=== PATIENT | female | born 1960 | race Caucasian/White ===

== ENCOUNTER 2023-09-13 13:56 | Emergency (ER) | payer OTHER, SELFPAY ==
[2023-09-13 14:04] VITALS: BP 140/68
--- NOTE | 2023-09-13 16:15 | ED.SKININJ ---
HPI-Injury
<Jimmy Molina DO - Last Filed: 09/13/23 16:17>
General
Chief Complaint: Bite
Time Seen by Provider: 09/13/23 15:22
Travel History
Have you had any contact with someone who has COVID-19?: No
Do you have any symptoms of coronavirus? Fever > 100 degrees, chills, cough, shortness of breath, sore throat, loss of taste or smell, muscle aches, or headache?: No
<Mendel Marquis PA-C - Last Filed: 09/13/23 18:57>
General
Source: patient
History of Present Illness-Injury
Initial Injury comments:
63-year-old female presenting emergency department for evaluation after she was accidentally bit by her daughter's dog approximately 30 minutes prior to arrival causing her to sustain a deep 1-1/2 cm laceration to the right middle finger with
significant pain.. Patient states dog's vaccinations are up-to-date. Patient notes that her tetanus vaccine is up-to-date. She is right-hand dominant. She does note that she has some pain and swelling to the right ring finger in addition to the
after mentioned laceration to the right middle finger.
<Mendel Marquis PA-C - Last Filed: 09/13/23 18:57>
Past History
ED Past Medical History: Hypercholesterolemia, Valvular disease and Other ([place])
ED Past Surgical History: , Gynecological, Tonsilectomy and Other (Gastric bypass)
Social History
Tobacco: Non-smoker
Alcohol: None
Drug: None
Personal: Single
Living: alone
<REJI Eisenberg Last Filed: 09/13/23 18:57>
Review of Systems
All Other Systems: ROS reviewed and negative except as documented in HPI and ROS
<Mendel Marquis PA-C - Last Filed: 09/13/23 18:57>
Physical Exam
Physical Exam:
GENERAL: Alert , in no apparent distress
EYE: conjunctiva clear
Head: Normocephalic atraumatic
NECK: Supple,
ENT: mmm.
LUNGS: no acute respiratory distress
NEUROLOGICAL: Alert and oriented
SKIN: Warm and dry, s deep 1-1/2 cm laceration to the right index finger at the level of the middle phalanx with active bleeding but no pulsatile areas seen.
MUSCULOSKELETAL: Right hand: Patient having difficulty flexing at the PIP and DIP. She does have very slight movement at the PIP and DIP with resisted flexion. Sensation is equal and intact to light touch throughout entirety of the right hand. No
difficulty with range of motion of the wrist or other large joints to the right upper extremity. Cap refills less than 2 seconds.
PSYCH: Normal and appropriate interaction.
<Mendel Marquis PA-C - Last Filed: 09/13/23 18:57>
Heart Failure Risk
Heart Failure Risk Score: Not Applicable
Heart Score for Chest Pain Patients
STEMI patient?: Not applicable
Withdrawal Assessment of Alcohol
Withdrawal Assessment Completed?: Not applicable
Course
<Jimmy Molina DO - Last Filed: 09/13/23 16:17>
Orders/Labs/Results
Orders:
Orders
09/13/23 14:13
CR Finger(s)/thumb Min 2 Vw Rt Urgent
Comment:
Reason For Exam: injury
Indicate Which Finger:: Middle Finger
09/13/23 16:13
Oxycodone/Acetaminophen [Percocet 5/325] 1 tablet PO NOW STA
09/13/23 16:39
Ampicillin/Sulbactam 3 G [Unasyn] 3 gm 0.9% Sodium Chloride 100 ml [Nss] 100 ml IV NOW
09/13/23 17:05
Ampicillin/Sulbactam 3 G [Unasyn] 3 gm 0.9% Sodium Chloride 100 ml [Nss] 100 ml IV NOW
Vital Signs
Initial and Last Documented VS:
Initial Vital Signs
Temp Pulse Resp BP Pulse Ox
98.0 F 57 16 140/68 97
09/13/23 14:04 09/13/23 14:04 09/13/23 14:04 09/13/23 14:04 09/13/23 14:04
Last Documented Vital Signs
Temp Pulse Resp BP Pulse Ox
98.0 F 57 16 140/68 97
09/13/23 14:04 09/13/23 14:04 09/13/23 14:04 09/13/23 18:22 09/13/23 14:04
<Mendel Marquis PA-C - Last Filed: 09/13/23 18:57>
Orders/Labs/Results
Orders:
Orders
09/13/23 14:13
CR Finger(s)/thumb Min 2 Vw Rt Urgent
Comment:
Reason For Exam: injury
Indicate Which Finger:: Middle Finger
09/13/23 16:13
Oxycodone/Acetaminophen [Percocet 5/325] 1 tablet PO NOW STA
09/13/23 16:39
Ampicillin/Sulbactam 3 G [Unasyn] 3 gm 0.9% Sodium Chloride 100 ml [Nss] 100 ml IV NOW
09/13/23 17:05
Ampicillin/Sulbactam 3 G [Unasyn] 3 gm 0.9% Sodium Chloride 100 ml [Nss] 100 ml IV NOW
Vital Signs
Initial and Last Documented VS:
Initial Vital Signs
Temp Pulse Resp BP Pulse Ox
98.0 F 57 16 140/68 97
09/13/23 14:04 09/13/23 14:04 09/13/23 14:04 09/13/23 14:04 09/13/23 14:04
Last Documented Vital Signs
Temp Pulse Resp BP Pulse Ox
98.0 F 57 16 140/68 97
09/13/23 14:04 09/13/23 14:04 09/13/23 14:04 09/13/23 18:22 09/13/23 14:04
<Mendel Marquis PA-C - Last Filed: 09/13/23 18:57>
Laceration Closure
Right Third Finger:
Status of Wound: bite
Size of Wound in cm: 1.5
Description of Wound Edges: macerated
Preparation: cleaned with saline
Anesthesia: Digital-Regional
Revision/Debridement: minor revision
Type of Closure: single layer closure
Skin Closure Material: 5-0 nylon
Number of sutures: 3
Additional information:
Skin was left loosely approximated given this was a bite wound. I initially only wanted to place 2 sut[address] but had to place a third due to continued bleeding. Following the third suture, hemostasis was achieved
Splinting/Sling Placement
Right Wrist:
Pre-splint extermity exam: neurovascular intact
Type of splint: volar
Splint material: other (3in)
Splint checked by provider?: Yes
Normal distal neurovascular exam?: Yes
<Mendel Marquis PA-C - Last Filed: 09/13/23 18:57>
MDM/Problems Addressed
Differential Diagnosis Includes:
Large laceration, fracture, tendon laceration, no concern for nerve involvement given normal sensation
MDM/Problems Addressed:
63-year-old female presenting the emergency department for evaluation following a dog bite to the right hand resulting in extensive and deep laceration. Concern for tendon involvement given difficulty with range of motion. X-ray was ordered from
triage and shows a comminuted fracture of the middle phalanx. Given the mechanism of the laceration will loosely approximate the skin. Consultation with orthopedics to discuss admission versus outpatient manage. Percocet ordered for pain control
and Unasyn for antibiotic coverage.
<REJI Eisenberg Last Filed: 09/13/23 18:57>
*Radiology
Radiology exam reviewed: preliminary read by ED provider (Comminuted fracture middle phalanx right middle finger)
*Pulse Oximetry
Patient hypoxic: no
*Critical Care Note
Total Time (30-74mins, 75-104mins- exclusive of procedures): Not Applicable
<Mendel Marquis PA-C - Last Filed: 09/13/23 18:57>
Patient Management
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
Escalation/DeEscalation of care consider admission/obs:
Case discussed with orthopedic hand surgeon, Dr. Neff. He is okay with patient being discharged home. He is in agreement with our plan of loosely approximating, dose of IV antibiotics and placing in a splint. He will have the office contact
the patient Saturday morning for a follow-up on the same day and he will see her in office then
ED Attending Note
<Jimmy Molina DO - Last Filed: 09/13/23 16:17>
ED Attending Note
Patient seen and examined by attending physician: Yes
I performed the substantive portion of visit, reviewed & personally made and approve the management plan that is documented in note by myself or MOOKIE.: Yes
ED Attending Note:
I agree with Eulogio's note
Patient suffered a dog bite. Patient is right-hand dominant. Laceration is to the right index finger. Significant laceration over the middle phalanx. Patient states she does have significant pain.
Range of motion limited by pain. However seems grossly intact.
Plan is for digital block and exploration of the wound. Will then be better able to identify any tendon injury. That we will discuss the case with hand surgery.
-
Portions of this chart may have been created with voice recognition software.� Occasional wrong word or��sound alike� substitutions may have occurred due to the inherent limitations of voice recognition software.
Discharge Plan
Departure
Patient Disposition: Home (Routine Discharge)
Date of Disposition: 09/13/23
Time of Disposition: 17:32
Patient with high blood pressure during this ER visit?: No
Discharge Problem:
Dog bite, Laceration of right middle finger, Fracture of middle phalanx of right middle finger, Laceration of flexor muscle, fascia and tendon of right middle finger at wrist and hand level, initial encounter
Instructions: Animal Bites (DC)
Prescriptions:
New
amoxicillin-pot clavulanate 875-125 mg tablet
1 tab PO BID 7 Days Qty: 14 0RF
oxycodone-acetaminophen [Percocet] 5-325 mg tablet
1 tab PO Q6HPRN PRN (Reason: pain) Qty: 10 0RF
No Action
multivitamin Tablet
1 tab PO DAILY
clonazepam 1 mg tablet
2 mg PO HS
Patient Comments:
09/13/2023: last filled 08/16/23, 60 tabs for 30 days from [facility]
spironolactone 25 mg tablet
25 mg PO BID
omeprazole 20 mg capsule,delayed release(DR/EC)
20 mg PO DAILY
escitalopram oxalate 20 mg tablet
20 mg PO DAILY
cyclobenzaprine 5 mg tablet
5 mg PO BID PRN (Reason: muscle spasms)
Vitamin D3/Potassium
1 tab PO DAILY
apple cider vinegar
1 gummy PO HS
Referrals:
Urbano Neff MD [Active] - (Saturday in office)
Ramin Johnson MD [Family Provider] -
Interventions
Interventions:
*Risk Screen - Suicide Last Done: 09/13/23 14:04
*General Assessment Last Done: 09/13/23 16:34
*Neglect/Abuse Screening Last Done: 09/13/23 14:04
*ED COVID-19 Vaccine History Last Done: 09/13/23 14:04
*Nursing Disposition Last Done: 09/13/23 18:22
ED-Skin Assessment Last Done: 09/13/23 16:32
Discharge Date and Time
Discharge Date/Time: 09/13/23 18:23
[2023-09-13] MEDS: PERCOCET 5/325 1 TABLET PO (16:27)
[2023-09-13] MEDS: UNASYN IV (17:32)
[2023-09-13 18:22] VITALS: BP 140/68
== END 2023-09-13 18:23 | disposition home or self-care (01) ==
LOC: EMR 13:56
PROVIDERS: EMERGENCY PHYSICIAN Emergency Medicine; FAMILY PHYSICIAN Internal Medicine
DX: S62.622A Displaced fracture of middle phalanx of right middle finger, initial encounter for closed fracture (principal); S66.122A Laceration of flexor muscle, fascia and tendon of right middle finger at wrist and hand level, initial encounter; W54.0XXA Bitten by dog, initial encounter
CPT/HCPCS: 99284; 96365; 12001; 73140

== ENCOUNTER 2023-09-16 11:34 | Outpatient (RCR) | payer OTHER, SELFPAY | END 2023-09-16 23:59 | disposition home or self-care (01) | LOC: ROT 11:34 | PROVIDERS: ATTENDING PHYSICIAN Orthopaedic Surgery Hand Surgery; FAMILY PHYSICIAN Internal Medicine | DX: S62.602D Fracture of unspecified phalanx of right middle finger, subsequent encounter for fracture with routine healing (principal); Z73.6 Limitation of activities due to disability; W54.0XXD Bitten by dog, subsequent encounter | CPT/HCPCS: 97760 ==